=== PATIENT | female | born 1940 | race Caucasian/White ===

== ENCOUNTER 2016-02-24 05:41 | Emergency (ER) | payer MEDICARE, OTHER ==
[2016-02-24] MEDS ORDERED: ASPIRIN 81 MG CHEW TAB ONE (06:18)
[2016-02-24] MEDS ORDERED: LIDOCAINE 2% VISC 15 ML UDC ONE (07:44)
[2016-02-24] MEDS ORDERED: ALU/MAG/SIM 30 ML UDC ONE (07:44)
[2016-02-24] MEDS ORDERED: ONDANSETRON 4 MG VIAL ONE (07:52)
== END 2016-02-24 10:08 | disposition home or self-care (01) ==
LOC: ER 05:41
CPT/HCPCS: 36415 ×2; 71010 ×2; 74020 ×2; 80053 ×2; 81001 ×2; 82550 ×2; 83690 ×2; 83735 ×2; 84484 ×2; 85025 ×2; 85610 ×2; 85730 ×2; 93005 ×2; 96374 ×2; 99284; J2405